=== PATIENT | female | born 1995 | race Caucasian/White ===

== ENCOUNTER 2018-02-09 15:54 | Inpatient (IN) | payer MEDICAID ==
[2018-02-09] MEDS ORDERED: IPRATROPIUM/ALBUTEROL 3 ML DEYVIAL IH ONE (16:06)
[2018-02-09] MEDS ORDERED: predniSONE 20 MG TAB PO ONE (16:06)
[2018-02-09] MEDS ORDERED: NS 1,000 ML IV ONE (16:10)
--- NOTE | 2018-02-09 16:10 | EDPHY ---
H & P Time Seen by Provider: 02/09/18 16:03 HPI/ROS: HPI: This is a 22-year-old female who presents with Chief Complaint: Difficulty breathing, headache, back pain Location: Chest Quality: Dyspnea Duration: 1 week Signs and Symptoms: no fever, no nausea, no vomiting, no diarrhea, no urinary symptoms, no chest pain, no shortness of breath, no wheezing, no cough, no sore throat, no neck stiffness, no joint pain, no swollen glands, no ear pain, no rash Timing: Worsening Severity: Moderate Context: Patient reports that she has difficulty breathing for the last several months and has been diagnosed with bronchitis several times. She has completed antibiotics x 2 over the last several months. She presents today with worsening shortness of breath over the last 1 week. She is a tobacco user. Has a Mirena IUD. No recent long distance travel. No lower extremity edema, fever, chills. Patient reports that she has wheezing with exertion. No prior history of asthma. Has no primary care provider. Modifying Factors: Comment: ROS: A comprehensive 10 system review of systems is otherwise negative aside from elements mentioned in the history of present illness. MEDICAL/SURGICAL/SOCIAL HISTORY: Medical history: Generally healthy. Does not take any regular medications. Surgical history: Denies Social history: Marijuana and tobacco user. Family history noncontributory. CONSTITUTIONAL: Nontoxic-appearing young adult white female, awake and alert, no obvious distress HEENT: Atraumatic and normocephalic, PERRL, EOMI. Nares patent; no rhinorrhea; no nasal mucosal edema. Tympanic membranes clear. Oropharynx clear, no exudate and moist pink mucosa. Airway patent. No lymphadenopathy. No meningismus. Cardiovascular: Normal S1/S2, regular rate, regular rhythm, without murmur rub or gallop. PULMONARY/CHEST: Symmetrical and nontender. Expiratory wheezing bilaterally. Good air movement. No accessory muscle usage. ABDOMEN: Soft, nondistended, nontender, no rebound, no guarding, no peritoneal signs, no masses or organomegaly. No CVAT. EXTREMITIES: 2/2 pulses, strength 5/5, no deformities, no clubbing, no cyanosis or edema. NEUROLOGICAL: no focal neuro deficits. GCS 15. SKIN: Warm and dry, no erythema. no rash. Good capillary refill. Source: Patient Exam Limitations: No limitations - Personal History LMP (Females 10-55): IUD In Place - Medical/Surgical History Hx Asthma: No Hx Chronic Respiratory Disease: No Hx Diabetes: No Hx Cardiac Disease: No Hx Renal Disease: No Other PMH: Denies - Social History Smoking Status: Current some day smoker Constitutional: Initial Vital Signs Temperature (C) 37.0 C 02/09/18 16:05 Heart Rate 120 H 02/09/18 16:05 Respiratory Rate 20 02/09/18 16:05 Blood Pressure 89/73 L 02/09/18 16:05 O2 Sat (%) 86 L 02/09/18 16:05 O2 Delivery Mode Room Air O2 (L/minute) 2 Allergies/Adverse Reactions: Sulfa (Sulfonamide Antibiotics) Allergy (Severe, Verified 06/18/15 21:35) aspirin Allergy (Verified 06/18/15 21:36) Home Medications: Medication Instructions Recorded IBUPROFEN 06/18/15 Cephalexin [Keflex] 500 mg PO TID 7 Days cap 06/19/15 oxyCODONE/APAP 5/325 [Percocet 1 tab PO Q6 #10 tab 06/19/15 5/325] Medical Decision Making - Diagnostics Imaging Results: Imaging Impressions Chest X-Ray 02/09/18 16:09 Impression: Moderate perihilar bronchitis, with anterior atelectasis and/or infiltrate (suspected to be in the right middle lobe). Clinical correlation and follow-up to assure resolution recommended. ED Course/Re-evaluation: Vital signs reviewed and show O2 sats 86% on room air with tachycardia. Sepsis protocol not met upon arrival. IV access and laboratory studies including D-dimer ordered along with chest x- ray Placed on 2 L nasal cannula O2 sats 95% Given DuoNeb and p.o. Prednisone 60 mg respiratory pathogen panel swab ordered Chest x-ray per radiology read shows Moderate perihilar bronchitis, with anterior atelectasis and/or infiltrate (suspected to be in the right middle lobe ). 1630: blood cx ordered; given IV Rocephin and Zithromax 1635: Labs reviewed. Leukocytosis with left shift. D-dimer negative. ED decision to consult for admission for community-acquired pneumonia, hypoxia, failed outpatient therapy. Spoke with hospitalist, Dr. Rosas, kindly agrees to admit patient and provide further care. This patient was seen under the supervision of my secondary supervising physician. I evaluated care for this patient independently. Discussed this patient with Dr. Pelayo who did not see the patient. Differential Diagnosis: Shortness of breath including but not limited to pulmonary infectious process, COPD, asthma, pulmonary embolus and congestive heart failure. - Data Points Laboratory Results: Laboratory Results 02/09/18 16:13 02/09/18 16:13 02/09/18 02/09/18 02/09/18 16:13 16:13 16:13 WBC RBC Hgb Hct MCV MCH MCHC RDW Plt Count MPV Neut % (Auto) Lymph % (Auto) [place] % (Auto) Eos % (Auto) Baso % (Auto) Nucleat RBC Rel Count Absolute Neuts (auto) Absolute Lymphs (auto) Absolute Monos (auto) Absolute Eos (auto) Absolute Basos (auto) Absolute Nucleated RBC Immature Gran % Immature Gran # Platelet Estimate D-Dimer < 0.27 ug/mLFEU ug/mLFEU (0.00-0.50) Sodium 143 mEq/L mEq/L (135-145) Potassium 4.2 mEq/L mEq/L (3.3-5.0) Chloride 102 mEq/L mEq/L (97-110) Carbon Dioxide 29 mEq/l mEq/l (22-31) Anion Gap 12 mEq/L mEq/L (6-14) BUN 8 mg/dL mg/dL (7-23) Creatinine 0.8 mg/dL mg/dL (0.6-1.0) Estimated GFR > 60 Glucose 50 mg/dL L mg/dL (70-100) Calcium 10.1 mg/dL mg/dL (8.5-10.4) Beta HCG, Qual NEGATIVE 02/09/18 16:13 WBC 10.56 10^3/uL H 10^3/uL (3.80-9.50) RBC 5.38 10^6/uL H 10^6/uL (4.18-5.33) Hgb 16.0 g/dL g/dL (12.6-16.3) Hct 48.5 % H % (38.0-47.0) MCV 90.1 fL fL (81.5-99.8) MCH 29.7 pg pg (27.9-34.1) MCHC 33.0 g/dL g/dL (32.4-36.7) RDW 12.9 % % (11.5-15.2) Plt Count 452 10^3/uL H 10^3/uL (150-400) MPV 10.8 fL fL (8.7-11.7) Neut % (Auto) Pending Lymph % (Auto) Pending [place] % (Auto) Pending Eos % (Auto) Pending Baso % (Auto) Pending Nucleat RBC Rel Count Pending Absolute Neuts (auto) Pending Absolute Lymphs (auto) Pending Absolute Monos (auto) Pending Absolute Eos (auto) Pending Absolute Basos (auto) Pending Absolute Nucleated RBC Pending Immature Gran % Pending Immature Gran # Pending Platelet Estimate Pending D-Dimer Sodium Potassium Chloride Carbon Dioxide Anion Gap BUN Creatinine Estimated GFR Glucose Calcium Beta HCG, Qual Medications Given: Discontinued Medications Albuterol/Ipratropium (Duoneb) 3 ml IH EDNOW ONE Stop: 02/09/18 16:07 Last Admin: 02/09/18 16:20 Dose: 3 ml Sodium Chloride (Ns) 1,000 mls @ 0 mls/hr IV EDNOW ONE; Wide Open PRN Reason: Protocol Stop: 02/09/18 16:11 Last Admin: 02/09/18 16:20 Dose: 1,000 mls Prednisone (Prednisone) 60 mg PO EDNOW ONE Stop: 02/09/18 16:07 Last Admin: 02/09/18 16:20 Dose: 60 mg Departure - Departure Disposition: [facility] Clinical Impression: Hypoxia, Tobacco user Community acquired pneumonia Qualifiers: Laterality: right Lung location: middle lobe of lung Qualified Code(s): J18.1 - Lobar pneumonia, unspecified organism Condition: Fair
[2018-02-09 16:25] LABS: PLATELET COUNT 452 10^3/uL (150-400)
[2018-02-09] MEDS ORDERED: AZITHROMYCIN IV 500 MG in D5W 250 ML IV ONE (16:30)
[2018-02-09 17:18] LABS: INR 0.96 (0.83-1.16)
[2018-02-09] MEDS ORDERED: ONDANSETRON 4 MG/2 ML VIAL IVP PRN (17:21)
[2018-02-09] MEDS ORDERED: ACETAMINOPHEN 325 MG TAB PO PRN (17:21)
[2018-02-09] MEDS ORDERED: traMADol 50 MG TAB PO PRN (17:21)
[2018-02-09] MEDS ORDERED: PROMETHAZINE HCL 25 MG/ML INJ IVP PRN (17:21)
[2018-02-09] MEDS: IPRATROPIUM/ALBUTEROL 3 ML DEYVIAL IH SCH ×2 (19:08→23:14)
--- NOTE | 2018-02-09 19:44 | GHP ---
DATE OF ADMISSION: 02/09/2018 CHIEF COMPLAINT: Shortness of breath. HISTORY: The patient is a 22-year-old female, who has been short of breath for 6 months. Has been d iagnosed multiple times with bronchitis. Has had 2 courses of antibiotics as well as a course of elvia roids and been given inhalers. Sounds like she is mostly seeking care through urgent care at [facility]. She is intermittently wheezing. Today, her shortness of breath got much more severe. She was w orried she had pneumonia so she came to the emergency room. She has back pain. Upon arrival at the emergency room, she was 86% on room air and is now being admitted. PAST MEDICAL HISTORY: Negative. MEDICATIONS: She has a Mirena IUD. ALLERGIES: To sulfa and aspirin. SOCIAL HISTORY: She is a smoker but has been cutting down now only half a pack per day, but she has not smoked for a couple days. No alcohol. She lives with a boyfriend. 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 REVIEW OF SYSTEMS: Complete review of systems obtained. Review of systems negative regarding consti tutional, HEENT, GI, pulmonary, cardiovascular, , hematologic, endocrine, psych except for positive s and negatives as in HPI. FAMILY HISTORY: Brother with asthma. PHYSICAL EXAMINATION: GENERAL: Well-developed, well-nourished female, in [id number] respirato ry distress. VITAL SIGNS: Temperature 37.0, pulse 120, elevated respiratory rate, blood pressure 8 9/73, sating 86% on room air. EYE: Normal conjunctivae. Pupils equal and reactive to light. ENT: No rmal ears and nose. Hearing intact. Normal teeth. Oropharynx moist. NECK: Trachea midline. No t hyromegaly. CHEST: Increased respiratory effort. LUNGS: Extensive wheezing heard throughout with rhonchi. CARDIOVASCULAR: Regular rate and rhythm. Tachycardic. No murmur. No lower extremity tamy ma. ABDOMEN: Soft, nontender. No hepatosplenomegaly. SKIN: Warm, dry, intact without rash. MUSC ULOSKELETAL: No cyanosis or clubbing. Strength 5/5 upper and lower extremities. NEURO: Cranial ne rves intact, normal sensation to light touch. PSYCH: Alert and oriented x3. Normal affect. Normal judgment. Normal memory. LABORATORY DATA: White count 10.56, hematocrit 48.5, platelets 452, sodium 143, potassium 4.2, chlor cami 102, bicarb 29, BUN 8, creatinine 0.8, glucose of 50. Beta HCG is negative. D-dimer is negative . I have discussed the case with Leyda Gao, emergency room provider, regarding ER course. Chest x-ray s hows possible right middle lobe pneumonia. I personally reviewed the chest x-ray and agree there is something there, although it is very subtle. ASSESSMENT/PLAN: 1. Reactive airways disease exacerbation. Given her prolonged intermittent symptoms, I do suspect s he has undiagnosed asthma. Will treat her for now with steroids and nebulizers, and she needs to hav e outpatient followup arranged. 2. Probable pneumonia. Continue IV ceftriaxone and azithromycin as started in the emergency room. 3. Tobacco dependence. Cessation should be advised. 4. Acute respiratory failure. This is evidenced by 86% on room air with respiratory distress noted at rest as well as tachycardia. She is now stabilized on supplemental oxygen. CODE STATUS: Full. ADMISSION STATUS: Will admit to observation. Reevaluate tomorrow regarding ongoing need for hospita lization. DVT PROPHYLAXIS: She is low risk. /[id number]/MODL
[2018-02-10] MEDS: NS 1,000 ML IV SCH ×3 (00:03→21:00)
[2018-02-10 04:20] LABS: PLATELET COUNT 360 10^3/uL (150-400)
[2018-02-10] MEDS: IPRATROPIUM/ALBUTEROL 3 ML DEYVIAL IH SCH ×4 (05:39→22:11)
[2018-02-10] MEDS: GUAIFENESIN/DM 10 ML UDCUP PO PRN ×3 (05:45→17:26)
[2018-02-10] MEDS: BENZONATATE 100 MG CAP PO PRN ×3 (05:45→17:26)
[2018-02-10] MEDS: AZITHROMYCIN 250 MG TAB PO SCH (08:49)
[2018-02-10] MEDS: predniSONE 20 MG TAB PO SCH (08:49)
[2018-02-10] MEDS ORDERED: PNEUMOCOCCAL 0.5ML VACCINE VIAL (PNEUMOVAX 23) IM ONE (10:26)
[2018-02-10] MEDS ORDERED: NICOTINE 21 MG/24 HR PATCH TD PRN (11:55)
--- NOTE | 2018-02-10 14:30 | ASMTCMCOM ---
CM Note CM Note Notes: CM reviewed pt's chart and met with staff re pt during rounds, for d/c planning. Pt is a 22y/o female with recurrent bronchitis over the past 6 months who came to the ED due to hypoxia. The possibility that she has pneumonia and/or asthma are being examined. Pt has no identified CM needs and it is anticipated that she will d/c independently. CM will follow for changes. D/C Plan: Anticipate independent. Date Signed: 02/10/2018 02:30 PM Electronically Signed By:Jimena Ch
--- NOTE | 2018-02-10 16:00 | HOSPPROG ---
Hospitalist Progress Note Assessment/Plan: DIAGNOSES: * acute asthma exacerbation, with eosinophilia * acute hypoxemic respiratory failure * tobacco abuse, now 5 days without a cigarette and wanting to quit * I do not think she has pneumonia at this point with no fever, normal procalcitonin, and initially normal neutrophils, and I do not appreciate a real infiltrate on chest x-ray * family history of COPD Seen by me today on hospitals rounds and multidisciplinary rounds PLANS: * Continue bronchodilators oral steroids inhaled steroids here * DC rocephin * add nicotine patch * increase activity as able * she has had her first pneumonia vaccine her today * strongly recommended annual flu shots * Hope to discharge home in the next day or 2 if she is making good progress * I spent approximately 20 mins in addition to my usual rounds and team rounds with the patient today on education around understanding monitoring and managing asthma, as well as smoking cessation activities * strongly recommend she establish with a civil technician or mobile battery technician upon discharge, we can give her names/#s SUBJECTIVE: still quite sob, still needing O2 still w prevalent cough, phlegm when I question her she has very little knowledge of asthma, it's causes, how to avoid triggers, how it is managed, how to monitor it's activity, etc she has a sibling with asthma, and her mother has very advanced copd OBJECTIVE Vitals reviewed: Clean Up Worker, my review: Exam: alert oriented skin warm dry color ok resps mildly labored at rest on O2 lungs BSs very diminished and with tight insp/exp wheeze heart regular abd soft nondistended nontender, bowel sounds present limbs warm, no edema iv site ok lab data: some improvement in wbc, thought neutrophils up likely from steroid eosinophilia resolved on steroid procalcitonin negative I reviewed CXR image from yesterday (showed image to patient) - there is significant hyperexpanson of lungs but no infiltrate or effusion, no interstitial disease, no adenopathy Objective: Vital Signs Temp Pulse Resp BP Pulse Ox 36.9 C 100 22 H 101/49 L 93 02/10/18 11:36 02/10/18 12:02 02/10/18 12:02 02/10/18 11:36 02/10/18 12:02 Laboratory Results 02/10/18 04:06 02/09/18 02/10/18 02/11/18 06:59 06:59 06:59 Intake Total 1950 Output Total 1200 Balance 750 PT 13.0 SEC (12.0-15.0) 02/09/18 16:13 INR 0.96 (0.83-1.16) 02/09/18 16:13 - Time Spent With Patient Time Spent with Patient: greater than 35 minutes Time Spent with Patient: Greater than 35 minutes spent on this patients care, greater than 50% of time spent counseling, educating, and coordinating care regarding the above mentioned plan. ICD10 Worksheet Patient Problems: Problems Problem Status Onset Community acquired pneumonia Acute Hypoxia Acute Tobacco user Acute
[2018-02-11] MEDS: BENZONATATE 100 MG CAP PO PRN (03:47)
[2018-02-11] MEDS: GUAIFENESIN/DM 10 ML UDCUP PO PRN (03:47)
[2018-02-11] MEDS: IPRATROPIUM/ALBUTEROL 3 ML DEYVIAL IH SCH ×2 (05:58→11:39)
[2018-02-11] MEDS: predniSONE 20 MG TAB PO SCH (09:27)
[2018-02-11] MEDS: AZITHROMYCIN 250 MG TAB PO SCH (09:27)
--- NOTE | 2018-02-11 10:47 | PDMN ---
Medical Necessity Medical necessity: MCG M60 Asthma: 22 w/ reactive airway disease exacerbation, probably pneumonia and acute resp fx. Initially OBS but pt needing ongoing hospital management of resp fx/asthma (new dx) w/ persisting dyspnea and hypoxemia requiring O2, need to cont bronchodilators and steroids and IVF, which meets IP criteria for asthma. Change to IP status 02/11/18@1038 per MD order.
[2018-02-11] MEDS ORDERED: IOPAMIDOL (ISOVUE-300) 100 ML BTL ONE (15:50)
--- NOTE | 2018-02-11 18:01 | GCON ---
CHEST CONSULTATION REFERRING PHYSICIAN: Renzo Levine MD REASON FOR ADMISSION: Hypoxemia, possible pneumonia. HISTORY OF PRESENT ILLNESS: The patient is an extremely pleasant 22-year-old white female without [facility] medical history. She presented to the emergency room with complaints of hypoxemia, with oxygen sa turations down to 86%, and she was markedly breathless. She has had several episodes of bronchitis o stephen the last 6 months, requiring antibiotics and oral steroids. She has never been formally diagnose d with asthma. Her mother smokes and has COPD. She was admitted through the emergency room, placed on IV steroids, as well as frequent nebulized treatments and antibiotics, and she is somewhat improve d. She denies any chest pain, pleuritic-type chest pain or angina equivalent. There is no current f ever or night sweats. She is a previous smoker but quit approximately 6 days ago. PAST MEDICAL HISTORY: None. PAST SURGICAL HISTORY: None. ALLERGIES: Sulfa and aspirin. SOCIAL HISTORY: Previous heavy smoker, none for several days. She denies any alcohol use. 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 She is single, without children, though she lives with her boyfr iebro. FAMILY HISTORY: Significant for asthma in a brother and COPD. MEDICATIONS: At home, none. She does have an IUD. PHYSICAL EXAM: VITAL SIGNS: Blood pressure is 96/53, pulse 90, respirations 14, temperature 37.1, o xygen saturation 96% on 2 L. GENERAL: She is a well-developed, well-nourished 22-year-old white fem saw who is resting comfortably on supplemental oxygen. HEENT: Eyes are PERRL, EOMI. Throat shows n o erythema or tonsillar hypertrophy. NECK: Supple. No cervical adenopathy. HEART: Regular rate an d rhythm, without murmurs, rubs, or gallops. LUNGS: Diffuse expiratory wheeze in all lung [place]. There are a few bibasilar crackles. ABDOMEN: Soft, nontender. Bowel sounds are present in all 4 qu adrants. EXTREMITIES: No clubbing, cyanosis, or edema. LABORATORIES: White count is 8.3, hemoglobin 12, hematocrit 36. Platelet count is 360. Sodium 143, potassium 4.2, chloride 102. CO2 is 29, BUN 8, creatinine 0.8. Glucose is 50. Chest x-ray shows p erihilar bronchitis. There is an area in the right middle lobe of possible atelectasis versus infilt rate. IMPRESSION: 1. Acute hypoxemia and respiratory failure, etiology of which is unclear, though possible pneumonia combined with possible asthma seems to be most likely. 2. Abnormal chest x-ray with possible pneumonia versus atelectasis. 3. Probable asthma. 4. History of tobacco abuse. RECOMMENDATIONS: 1. Agree with current prednisone dosage. 2. Would start oral antibiotics. 3. Frequent nebulized treatments with albuterol. 4. Will obtain a CT scan of the chest as soon as possible. I was requested to see patient by Dr. Renzo Levine. /[id number]/MODL
--- NOTE | 2018-02-11 18:50 | HOSPPROG ---
Hospitalist Progress Note Assessment/Plan: DIAGNOSES: * acute asthma exacerbation, with eosinophilia * acute hypoxemic respiratory failure * Ongoing dyspnea and hypoxemia with 85% room air saturation today, requiring oxygen at rest * diffuse bronchial thickening and mucus plugging, with collapse of right middle lobe likely due to mucous plugging per radiologist * tobacco abuse, now 5 days without a cigarette and wanting to quit * I do not think she has pneumonia at this point with no fever, normal procalcitonin, and initially normal neutrophils, but with mucus plugging, productive cough an ongoing hypoxemia continue azithromycin * family history of COPD Seen by me today on hospitals rounds and multidisciplinary rounds I reviewed in detail today with Dr. Sahkeel Gil who will see the patient in consultation for me today PLANS: * Continue bronchodilators oral steroids inhaled steroids here * Continue azithromycin * CT scan for further assessment for cause of her ongoing hypoxemia has been ordered of reviewed images * Pulmonary consultation * add nicotine patch * increase activity as able * she has had her first pneumonia vaccine her 02/10 * strongly recommended annual flu shots * Hope to discharge home in the next day or 2 if she is making good progress * Have counseled the patient extensively on asthma monitoring and treatment * Ongoing outpatient follow-up in pulmonary clinic after discharge as indicated SUBJECTIVE: still quite sob, still needing O2 still w prevalent cough, phlegm OBJECTIVE Vitals reviewed: Still hypoxemic at 85% on room air, otherwise stable vital signs without fever Exam: alert oriented skin warm dry color ok resps mildly labored at rest on O2 lungs moving air better today and with less wheezing but still some inspiratory and expiratory wheeze heart regular abd soft nondistended nontender, bowel sounds present limbs warm, no edema iv site ok CT scan of chest done today with contrast and I reviewed images: There is collapse of the right middle lobe. There is some diffuse airway disease with diffuse mucus plugging. No areas of alveolar infiltrate per se, no areas of heart failure, no filling defects in vessels to suggest PE Objective: Vital Signs Temp Pulse Resp BP Pulse Ox 37.1 C 90 14 96/53 L 96 02/11/18 15:18 02/11/18 15:18 02/11/18 15:18 02/11/18 15:18 02/11/18 15:18 02/10/18 02/11/18 02/12/18 06:59 06:59 06:59 Intake Total 2480 Balance 2480 PT 13.0 SEC (12.0-15.0) 02/09/18 16:13 INR 0.96 (0.83-1.16) 02/09/18 16:13 - Time Spent With Patient Time Spent with Patient: greater than 35 minutes Time Spent with Patient: Greater than 35 minutes spent on this patients care, greater than 50% of time spent counseling, educating, and coordinating care regarding the above mentioned plan. ICD10 Worksheet Patient Problems: Problems Problem Status Onset Community acquired pneumonia Acute Hypoxia Acute Tobacco user Acute
[2018-02-11] MEDS: ALBUTEROL 3 ML DEYVIAL IH PRN (21:36)
[2018-02-11] MEDS: NS 1,000 ML IV SCH (22:06)
--- NOTE | 2018-02-12 09:03 | SOAPPROG ---
SOAP Progress Note Assessment/Plan: Assessment/plan: * Acute asthma-improved -continue steroids and nebulized treatments * Bronchitis Continue antibiotics * Mucus plugging with right middle lobe atelectasis. Query if this is right middle lobe syndrome. -NPO for now -Will perform fiberoptic bronchoscopy today. Subjective: Feels markedly improved. Resting comfortably. Objective: Vital Signs Temp Pulse Resp BP Pulse Ox 36.8 C 82 12 105/51 L 86 L 02/12/18 08:00 02/12/18 08:00 02/12/18 08:00 02/12/18 08:00 02/12/18 08:00 02/11/18 02/12/18 02/13/18 05:59 05:59 05:59 Intake Total 4252 Balance 4252 PT 13.0 SEC (12.0-15.0) 02/09/18 16:13 INR 0.96 (0.83-1.16) 02/09/18 16:13 - Time Spent With Patient Time Spent With Patient: 35 min of time spent with patient, over 1/2 involved coordination of care counseling Case discussed with nursing Physical Exam - Physical Exam General Appearance: alert, no apparent distress EENT: PERRL/EOMI Neck: non-tender, full range of motion Respiratory: wheezing, prolonged expiration, No respiratory distress Cardiac/Chest: normal peripheral pulses, regular rate, rhythm Abdomen: normal bowel sounds, non-tender, soft Pelvic Exam: deferred Rectal: deferred Skin: normal color, warm/dry Extremities: normal range of motion, non-tender, normal inspection, normal capillary refill Neuro/Psych: alert ICD10 Worksheet Patient Problems: Problems Problem Status Onset Community acquired pneumonia Acute Hypoxia Acute Tobacco user Acute
[2018-02-12] MEDS: AZITHROMYCIN 250 MG TAB PO SCH (09:19)
[2018-02-12] MEDS: predniSONE 20 MG TAB PO SCH (09:19)
[2018-02-12] MEDS: ALBUTEROL 3 ML DEYVIAL IH PRN ×3 (11:34→20:51)
[2018-02-12] MEDS ORDERED: NS 500 ML IV SCH (12:56)
--- NOTE | 2018-02-12 13:14 | HOSPPROG ---
Hospitalist Progress Note Assessment/Plan: #Asthma with exacerbation #Acute Bronchitis #Mucus Plugging #Right Middle Lobe Atelectasis #Tobacco Abuse D/o #Acute Hypoxic Respiratory failure, resolving Plan: Bronchoscopy today Scheduled Nebs, will change from PRN cont Steroids, would taper if OK with pulm Azithromycin Supplemental O2, saturating 86% on RA Tobacco cessation counseling provided Dispo: awaiting Bronchoscopy. Pending results may keep overnight vs d/c home Subjective: still on supplemental O2. will have bronchoscopy today. afebrile Objective: Vital Signs Temp Pulse Resp BP Pulse Ox 36.4 C 81 17 98/53 L 96 02/12/18 11:50 02/12/18 11:50 02/12/18 11:50 02/12/18 11:50 02/12/18 11:50 02/11/18 02/12/18 02/13/18 05:59 05:59 05:59 Intake Total 4252 Balance 4252 PT 13.0 SEC (12.0-15.0) 02/09/18 16:13 INR 0.96 (0.83-1.16) 02/09/18 16:13 - Physical Exam Constitutional: no apparent distress Eyes: PERRL Ears, Nose, Mouth, Throat: moist mucous membranes Cardiovascular: regular rate and rhythym, No edema Respiratory: reduced air movement, expiratory wheeze Gastrointestinal: normoactive bowel sounds, soft, non-tender abdomen Skin: warm Musculoskeletal: full muscle strength Neurologic: AAOx3 Psychiatric: interacting appropriately, not anxious, not encephalopathic Lymph, Heme, Immunologic: No petechiae ICD10 Worksheet Patient Problems: Problems Problem Status Onset Community acquired pneumonia Acute Hypoxia Acute Tobacco user Acute
[2018-02-12] MEDS ORDERED: ALBUTEROL 3 ML DEYVIAL ONE (13:28)
[2018-02-12] MEDS ORDERED: MIDAZOLAM 2 MG/2 ML VIAL ONE ×2 (13:33→14:08)
[2018-02-12] MEDS ORDERED: fentaNYL 100 MCG/2 ML INJ ONE (13:33)
[2018-02-12] MEDS ORDERED: LIDOCAINE 2% JELLY 20 ML (UROJECT) UR ONE (13:45)
--- NOTE | 2018-02-12 13:57 | PDPROPOC ---
Sedation Plan of Care Sedation Plan of Care: vital signs stable, mental status noted, patient educated of risks, benefits, alternatives, patient can tolerate sedation ASA Classification: ASA 1 Planned drugs: fentanyl, midazolam Mallampati Score: Class 1 Mallampati Reference Image: Patient passed 3-3-2 rule?: Yes
[2018-02-12] MEDS ORDERED: LIDOCAINE 1% 300 MG/30 ML SDV ONE (14:12)
[2018-02-12] MEDS ORDERED: EPINEPHrine 1 MG/ML INJ ONE (14:12)
[2018-02-12] MEDS ORDERED: fentaNYL 100 MCG/2 ML INJ IVP ONE (14:25)
[2018-02-12] MEDS ORDERED: MIDAZOLAM 2 MG/2 ML VIAL IVP ONE (14:25)
--- NOTE | 2018-02-12 14:27 | BVPULMO ---
[facility] Surgical Services- Pulmonology Patient Name: Dariana Allison Procedure Date: 02/12/2018 1:45 PM Patient Type: Inpatient Attending MD/ER Physician: Shakeel Gil MD Procedure: Bronchoscopy Indications: Atelectasis of the right middle lobe Providers: Shakeel Gil MD Medicines: Midazolam 5 mg IV, Fentanyl 125 mcg IV, Lidocaine applied to nares and subglott ic space, Lidocaine 4% via nebulizer with Albuterol 2.5 mg, Lidocaine 1% applied t o cords 2 mL, Lidocaine subglottic space, Lidocaine 1% subglottic space 4 mL, Oxy gen 4 L/min Complications: No immediate complications Procedure: After informed consent, a time out was performed. N95 masks were worn, and the procedure was done in a negative pressure room. The patient was given appropria te topical anesthesia and intravenous sedation. The fiberopic bronchoscope was pas sed via a bite block orally into the larynx and subsequently into the lower trachea bronchial tree. Throughout the procedure, the patient's blood pressure, pulse, and oxygen saturations were monitored continuously. The Bronchoscope (Video) was introduced through the left nostril and advanced to the tracheobronchial tree. The procedure was accomplished without difficulty. The patient tolerated the proced ure well. The total duration of the procedure was 20 minutes. Findings: Bilateral Lung Abnormalities: Mucus, plugging the airway, was found throughout the tracheobronchial tree. The mucus was copious and mucoid. RML revealed copious m ucus plugging that was therapeutically aspirated. The underlying mucosa is normal. Therapeutic suctioning was performed. Mucus plugs were removed from the airway and the airway was cleared. The suctioned material was sent for cell count, bacteri al culture, viral smears & culture, and fungal & AFB analysis and cytology, routin e cytology, aerobic culture and fungal analysis. Post Op Diagnosis: - Atelectasis of the right middle lobe - A mucus plugging was found throughout the tracheobronchial tree. - Therapeutic suctioning was performed. Estimated Blood Loss: Estimated blood loss: none. Recommendation: - Await BAL results. - Chest X-ray post-procedure. Attending Participation: I personally performed the entire procedure. Shakeel Gil MD Shakeel Gil MD 02/12/2018 2:26:46 PM This report has been signed electronicallyThomas MD Jeffery Number of Addenda: 0 Note Initiated On: 02/12/2018 1:45 PM [email or web address]
--- NOTE | 2018-02-12 15:48 | ASMTCMCOM ---
CM Note CM Note Notes: 02/12/2018 Case Management Note Discussed pt during rounds this morning. Boyfriend was present in the room. Pt to have bronchoscopy today. There are no therapies ordered at this time. Anticipating d/c tomorrow. Case Management d/c poc: independent with follow up as directed. Case Management available if needs change. Date Signed: 02/12/2018 03:46 PM Electronically Signed By:Sofie Barrios RN
[2018-02-12] MEDS: ACETYLCYSTEINE 10% IH/PO 4 ML VIAL IH SCH ×2 (16:44→20:52)
[2018-02-13] MEDS: ALBUTEROL 3 ML DEYVIAL IH PRN ×2 (05:03→11:04)
[2018-02-13] MEDS: ACETYLCYSTEINE 10% IH/PO 4 ML VIAL IH SCH ×2 (05:04→11:04)
[2018-02-13] MEDS: AZITHROMYCIN 250 MG TAB PO SCH (07:58)
[2018-02-13] MEDS: predniSONE 20 MG TAB PO SCH (07:59)
[2018-02-13 08:05] VITALS: BP 104/48
--- NOTE | 2018-02-13 09:52 | SOAPPROG ---
SOAP Progress Note Assessment/Plan: Assessment/plan: * Acute asthma-improved -taper steroids over 2 weeks time -start patient on Advair is now patient -patient follow up with me as an outpatient * Bronchitis Continue antibiotics * Mucus plugging with right middle lobe atelectasis. Overall improved post bronchoscopy. Subjective: Resting comfortably. Off supplemental oxygen. Feels markedly improved and wishes to be discharged home. Objective: Vital Signs Temp Pulse Resp BP Pulse Ox 36.7 C 92 14 104/48 L 94 02/13/18 08:00 02/13/18 08:00 02/13/18 08:00 02/13/18 08:00 02/13/18 08:00 Microbiology 02/12/18 14:15 Gram Stain - Final Bronchial Alveolar Lavage - Unspecified 02/12/18 02/13/18 02/14/18 05:59 05:59 05:59 Intake Total 4252 2100 Balance 4252 2100 PT 13.0 SEC (12.0-15.0) 02/09/18 16:13 INR 0.96 (0.83-1.16) 02/09/18 16:13 Repeat chest x-ray pending - Time Spent With Patient Time Spent With Patient: 35 min of time spent with patient, over 1/2 involved with coordination of care or counseling. Case discussed with hospitalist Physical Exam - Physical Exam General Appearance: alert, no apparent distress EENT: PERRL/EOMI Neck: non-tender Respiratory: rhonchi (Few), prolonged expiration (Mild), No wheezing Cardiac/Chest: normal peripheral pulses, regular rate, rhythm Peripheral Pulses: 2+: carotid (R), carotid (L), femoral (R), femoral (L), dorsalis-pedis (R), dorsalis-pedis (L) Abdomen: normal bowel sounds, non-tender, soft Pelvic Exam: deferred Rectal: deferred Skin: normal color, warm/dry Extremities: normal range of motion, non-tender, normal inspection, normal capillary refill Neuro/Psych: no motor/sensory deficits, alert, normal mood/affect, oriented x 3 ICD10 Worksheet Patient Problems: Problems Problem Status Onset Community acquired pneumonia Acute Hypoxia Acute Tobacco user Acute
[2018-02-13] MEDS ORDERED: ALBUTEROL 60 PUFFS/8 GM MDI IH PRN (12:13)
--- NOTE | 2018-02-13 12:23 | PDDCSUM ---
Discharge Summary Discharge Summary: 22 yo tobacco user admitted with Asthma Exacerbation and acute hypoxic respiratory failure. She was admitted. She was treated accordingly. she is now back to RA. She has been treated with Azithromycin. She will d/c on a Prednisone taper, Albuterol PRN, and scheduled Advair. She had bronchoscopy on the day prior to discharge. She will f/u with PCP in 1-[address] Abiel Gil in early March. DDX: #Asthma with exacerbation #Acute Bronchitis #Mucus Plugging #Right Middle Lobe Atelectasis #Tobacco Abuse D/o: Reports that she has quit #Acute Hypoxic Respiratory failure, resolving Exam: NAD, AAOX3 RRR EXP WHEEZE, NORMAL WORK OF BREATHING S/NT/ND NO LE EDEMA MEDS: SEE MED REC F/U: PER ABOVE TOTAL TIME SPENT ON D/C IS 35 MINUTES
[2018-02-13] MEDS ORDERED: FLUTICASONE/SALMETER 100/50MCG DISKUS IH SCH (21:00)
== END 2018-02-13 14:09 | disposition home or self-care (01) | DRG 142 ==
LOC: INTOOBSV 16:52 → F2W 18:28 → OBSVTOIN 02-11 10:38
PROVIDERS: ADMIT Internal Medicine; ATTEND Internal Medicine
DX: J82 Pulmonary eosinophilia, not elsewhere classified (principal); J96.01 Acute respiratory failure with hypoxia; J20.9 Acute bronchitis, unspecified; J98.11 Atelectasis; F17.210 Nicotine dependence, cigarettes, uncomplicated; E86.9 Volume depletion, unspecified; Z23 Encounter for immunization
CPT/HCPCS: 96374; G0009; G0378; J0171; J0456; J0696; J2250; J3010; J7512; J7613; Q9967

== ENCOUNTER 2018-05-22 16:03 | Observation (INO) | payer MEDICAID ==
[2018-05-22] MEDS ORDERED: IPRATROPIUM/ALBUTEROL 3 ML DEYVIAL IH ONE (16:21)
[2018-05-22] MEDS ORDERED: NS 1,000 ML IV ONE (16:21)
--- NOTE | 2018-05-22 16:21 | EDPHY ---
H & P Stated Complaint: cough, feels tightness, sob Time Seen by Provider: 05/22/18 16:12 HPI/ROS: Chief complaint: Difficulty breathing History of present illness: This is a 22-year-old female, who does smoke cigarettes, who presents to the emergency department for difficulty breathing. Patient has a history of asthma. She was admitted this hospitalist in fall of last year for acute exacerbation, pneumonia and hypoxia. Since then she has not been doing well. She has not been able to follow up with a doctor since then. She is using her mom's inhaler and nebulizer she has run out of her own. She states symptoms progressively worsened. In addition, she states over the last few days she started to feel sick with generalized fatigue and a wet productive cough. Review of systems: A 10 point review of systems was obtained and other than described above was negative. - Personal History LMP (Females 10-55): Irregular Current Tetanus/Diphtheria Vaccine: Unsure Current Tetanus Diphtheria and Acellular Pertussis (TDAP): Unsure - Medical/Surgical History Hx Asthma: Yes Hx Chronic Respiratory Disease: No Hx Diabetes: No Hx Cardiac Disease: No Hx Renal Disease: No Hx Cirrhosis: No Hx Alcoholism: No Hx HIV/AIDS: No Hx Splenectomy or Spleen Trauma: No Other PMH: IUD - Social History Smoking Status: Current some day smoker - Physical Exam Exam: General Appearance: Alert, nontoxic. Eyes: Pupils equal and round no pallor or injection. ENT, Mouth: Mucous membranes moist. Respiratory: Patient does appear dyspneic when speaking, having difficulty completing full sentences. Diffuse rhonchi and wheezing throughout the lung [place]. Cardiovascular: Regular rate and rhythm. Gastrointestinal: Abdomen is soft and non tender, no masses, bowel sounds normal. Neurological: Alert and oriented. Skin: Warm and dry, no rashes. Musculoskeletal: Neck is supple non tender. Extremities are symmetrical, full range of motion. Psychiatric: Patient is oriented X 3, there is no agitation. Constitutional: Initial Vital Signs Temperature (C) 36.8 C 05/22/18 16:04 Heart Rate 102 H 05/22/18 16:04 Respiratory Rate 20 05/22/18 16:04 Blood Pressure 94/62 L 05/22/18 16:04 O2 Sat (%) 92 05/22/18 16:04 O2 Delivery Mode Nasal Cannula O2 (L/minute) 2 Allergies/Adverse Reactions: latex Allergy (Severe, Verified 02/10/18 04:48) Rash Sulfa (Sulfonamide Antibiotics) Allergy (Severe, Verified 06/18/15 21:35) aspirin Allergy (Verified 06/18/15 21:36) Home Medications: Medication Instructions Recorded Albuterol [Proventil Inhaler HFA 2 puffs IH Q4HRS PRN #1 mdi 02/13/18 (*)] Albuterol Sulfate [ALBUTEROL 1.25 mg IH Q4H PRN 05/22/18 SULFATE 1.25 MG/3 ML] Medical Decision Making - Diagnostics Imaging Results: Imaging Impressions Chest X-Ray 05/22/18 16:22 Impression: 1. Bronchitis/airways disease. 2. Residual scarring in the lingula. 3. No definite pneumonia. Imaging: I viewed and interpreted images myself ED Course/Re-evaluation: Patient seen under the supervision of my secondary supervising physician Dr. Raffaele Cortes. Patient presents for trouble breathing. She has a history of asthma with smoking. She is symptomatically treated with improvement in symptoms. However, upon ambulation she continues to desaturate into the mid 80s. She is admitted for further evaluation and care. The plan has been discussed with the patient voiced understanding and agreement with it. Differential Diagnosis: Included but not limited to asthma exacerbation, status asthmaticus, pulmonary infections - Data Points Laboratory Results: 05/22/18 17:11 Nasal Influenza A PCR NEGATIVE FOR FLU A (NEGATIVE) Nasal Influenza B PCR NEGATIVE FOR FLU B (NEGATIVE) Medications Given: Albuterol/Ipratropium (Duoneb) 3 ml IH QID ELAINA Stop: 11/18/18 20:59 Last Admin: 05/22/18 21:39 Dose: Not Given Nicotine (Nicoderm Cq) 14 mg TD DAILY ELAINA Stop: 11/18/18 22:14 Last Admin: 05/22/18 23:07 Dose: 14 mg Discontinued Medications Albuterol (Proventil Neb) 9 ml IH CONT ONE Stop: 05/22/18 18:42 Last Admin: 05/22/18 18:50 Dose: 9 ml Albuterol Sulfate (Proventil Inh Prepack) 1 mdi TAKEHOME EDNOW ONE Stop: 05/22/18 18:15 Last Admin: 05/22/18 21:25 Dose: Not Given Albuterol/Ipratropium (Duoneb) 3 ml IH EDNOW ONE Stop: 05/22/18 16:22 Last Admin: 05/22/18 16:37 Dose: 3 ml Sodium Chloride (Ns) 1,000 mls @ 0 mls/hr IV ONCE ONE; Wide Open PRN Reason: Protocol Stop: 05/22/18 16:22 Last Admin: 05/22/18 16:37 Dose: 1,000 mls Magnesium Sulfate/Dextrose (Magnesium Sulf 1 Gm (Premix)) 100 mls @ 100 mls/hr IV EDNOW ONE Stop: 05/22/18 19:40 Last Admin: 05/22/18 18:50 Dose: 100 mls Prednisone (Prednisone) 40 mg PO EDNOW ONE Stop: 05/22/18 16:23 Last Admin: 05/22/18 16:37 Dose: 40 mg Departure - Departure Disposition: Home, Routine, Self-Care Clinical Impression: Exacerbation of asthma Qualifiers: Asthma severity: unspecified severity Asthma persistence: persistent Qualified Code(s): J45.901 - Unspecified asthma with (acute) exacerbation Condition: Good
[2018-05-22] MEDS ORDERED: predniSONE 10 MG TAB PO ONE (16:22)
[2018-05-22] MEDS ORDERED: ALBUTEROL INH PREPACK MDI TAKEHOME ONE (18:14)
[2018-05-22] MEDS ORDERED: ALBUTEROL 3 ML DEYVIAL IH ONE (18:41)
[2018-05-22] MEDS ORDERED: MAGNESIUM SULF 1 GM/DEXTROSE 100 ML IV ONE (18:41)
[2018-05-22] MEDS ORDERED: ALBUTEROL 3 ML DEYVIAL ONE (18:45)
[2018-05-22] MEDS ORDERED: ONDANSETRON 4 MG/2 ML VIAL IVP PRN (20:29)
[2018-05-22] MEDS ORDERED: ACETAMINOPHEN 325 MG TAB PO PRN (20:29)
[2018-05-22] MEDS ORDERED: ALBUTEROL 3 ML DEYVIAL IH PRN (20:29)
[2018-05-22] MEDS ORDERED: ONDANSETRON DISINTEGRATING 4 MG TAB PO PRN (20:29)
[2018-05-22] MEDS: IPRATROPIUM/ALBUTEROL 3 ML DEYVIAL IH SCH (21:39)
--- NOTE | 2018-05-22 22:19 | PDGENHP ---
History and Physical - Chief Complaint SOB - History of Present Illness Dariana Allison is a 22 yo F with a PMHx of asthma who presents to [facility] for SOB. She reports that over the past few weeks she has been increasingly SOB with worsening productive cough of green sputum and wheezing. She was diagnosed with asthma in 01/2018 and has not filled prescriptions for inhalers she was prescribed at that time. She has been using her meds albuterol inhaler multiple times a day with some mild improvement in symptoms. She denies any chest pain, palpitations, n/v, d/c, edema. History Information - Allergies/Home Medication List Allergies/Adverse Reactions: latex Allergy (Severe, Verified 02/10/18 04:48) Rash Sulfa (Sulfonamide Antibiotics) Allergy (Severe, Verified 06/18/15 21:35) aspirin Allergy (Verified 06/18/15 21:36) Home Medications: Albuterol Sulfate [ALBUTEROL SULFATE 1.25 MG/3 ML] 1.25 mg IH Q4H PRN 05/22/18 [ Last Taken Unknown] I have personally reviewed and updated: family history, medical history, social history, surgical history - Past Medical History asthma - Surgical History Reports: no pertinent surgical hx - Family History Positive for: non-pertinent - Social History Smoking Status: Current some day smoker Review of Systems Review of Systems: ROS: 10pt was reviewed & negative except for what was stated in HPI & below Physical Exam Physical Exam: Temp Pulse Resp BP Pulse Ox 36.6 C 104 H 18 101/56 L 93 05/22/18 21:28 05/22/18 21:28 05/22/18 21:28 05/22/18 21:28 05/22/18 21:28 Constitutional: no apparent distress Eyes: PERRL Ears, Nose, Mouth, Throat: moist mucous membranes Cardiovascular: regular rate and rhythym Respiratory: reduced air movement, expiratory wheeze Gastrointestinal: soft, non-tender abdomen Skin: warm Musculoskeletal: full muscle strength Neurologic: AAOx3 Psychiatric: interacting appropriately Lab Data & Imaging Review Nasal Influenza A PCR NEGATIVE FOR FLU A (NEGATIVE) 05/22/18 17:11 Nasal Influenza B PCR NEGATIVE FOR FLU B (NEGATIVE) 05/22/18 17:11 Assessment & Plan Assessment: Exacerbation of asthma (Acute) - Several weeks of SOB, productive cough, wheezing - Dx with asthma in 01/2018, never picked up inhalers - CXR showing bronchitis/airway disease, no PNA noted - S/p nebulizer, Prednisone 40 mg PO, 1 gm Mg in ED with improvement in symptoms - Will continue scheduled and PRN nebs, Prednisone 40 mg qd - Restart Advair - Wean 02 as tolerated - Flu negative on admission Tobacco abuse - Ordered Nicotine patch - Counseled on cessation in setting of asthma FEN: Regular DVT PPx: Low risk, SCDs Code: FULL Dispo: Admit to Medicine
[2018-05-22] MEDS: NICOTINE 14 MG/24 HR PATCH TD SCH (23:07)
[2018-05-23] MEDS: IPRATROPIUM/ALBUTEROL 3 ML DEYVIAL IH SCH ×3 (05:55→16:17)
[2018-05-23] MEDS: NICOTINE 14 MG/24 HR PATCH TD SCH (08:56)
[2018-05-23] MEDS ORDERED: predniSONE 20 MG TAB PO SCH (09:00)
--- NOTE | 2018-05-23 15:50 | PDDCSUM ---
Discharge Summary Discharge Summary: Date of Admission: 05/22/2018 Date of Discharge: 05/23/2018 Studies: CXR Discharge Diagnoses: 1. Acute asthma exacerbation 2. Acute bronchitis 3. Acute hypoxia, improved 4. Ongoing tobacco use Brief Hospital Course: 22yo F with history of asthma (recent admission late 2018 for exacerbation) presented with several weeks of worsening shortness of breath. She has not been taking her inhalers and has continued to smoke cigarettes since last admission. She was wheezing on exam. CXR was consistent with bronchitis. She tested negative for influenza. She was treated for an asthma exacerbation with bronchodilators and steroids with significant improvement. Her O2 sats at discharge were in the lower 90s. She was restarted on advair. Smoking cessation was strongly encouraged. She was given resources for PCP and pulmonology follow up. Medications: Please refer to EMR for complete list. I wrote prescriptions for albuterol rescue inhaler, Advair BID, and prednisone 40mg x4 days then 20mg x4 days. Follow Up Plan: 1. Establish with PCP 2. Referred to Dr Gil in pulmonology clinic last admission. I gave her this clinic number again and strongly encouraged her to make an appointment. Physical Exam: Vital reviewed, O2 sats >90%. Alert and oriented, rrr, lungs with no wheezes but slightly diminished sounds throughout, abdomen soft, no leg edema, no rashes.
--- NOTE | 2018-05-23 16:44 | ASMTCMCOM ---
CM Note CM Note Notes: Met with Pt and discussed in rounds. Pt is a 22yr old admitted with increase SOB, coughing and wheezing. She has a history of Asthma and is a smoker. Pt inderrested in quitting, so I referred her to the [place] [facility]. Pt to discharge home with no needs Identified at this time. CM available for needs. Plan: Home Independently. Date Signed: 05/23/2018 04:43 PM Electronically Signed By:Tg Isaac
--- NOTE | 2018-05-23 16:45 | ASMTLACE ---
GONZALO Length of stay for Answers: 2 days current admission # of Emergency department Answers: 1-2 visits in the last 6 months Score: 3 Date Signed: 05/23/2018 04:45 PM Electronically Signed By:Tg Isaac
[2018-05-23 16:46] VITALS: BP 98/60
[2018-05-23] MEDS ORDERED: FLUTICASONE/SALMETER 250/50MCG DISKUS IH SCH (21:00)
== END 2018-05-23 17:24 | disposition home or self-care (01) ==
LOC: F1N 21:31
PROVIDERS: ADMIT Internal Medicine; ATTEND Internal Medicine
DX: J45.901 Unspecified asthma with (acute) exacerbation (principal); J20.9 Acute bronchitis, unspecified; R09.02 Hypoxemia; E86.9 Volume depletion, unspecified; F17.200 Nicotine dependence, unspecified, uncomplicated
CPT/HCPCS: 71046; 96361; 96365; 99285; G0378; J3475; J7512; J7613